=== PATIENT | female | born 1975 | race Caucasian/White ===

== ENCOUNTER 2018-11-24 19:28 | Emergency (ER) | payer SELFPAY ==
[2018-11-24] MEDS ORDERED: ONDANSETRON 4 MG/2 ML VIAL ONE ×2 (20:27→22:13)
[2018-11-24] MEDS ORDERED: KETOROLAC 30 MG/ML INJ ONE (20:27)
[2018-11-24] MEDS ORDERED: NA CHLORIDE 0.9% 1,000 ML ONE (20:27)
[2018-11-24 20:29] LABS: Absolute Lymphocytes (CBC) 1.1 K/uL (0.7-4.9); Absolute Monocytes 2.7 K/uL (0.1-1.3); Basophils % 0.2 % (0-1.3); Eosinophils % 0.1 % (0-4.4); Hematocrit 35.3 % (36.0-45.0); MPV 7.4 fL (7.6-11.3); Monocytes % 11.7 % (3.3-12.3)
[2018-11-24 20:48] LABS: ALT/SGPT 21 U/L (12-78); AST/SGOT 16 U/L (15-37); Albumin 3.2 g/dL (3.4-5.0); Alkaline Phosphatase 72 U/L (45-117); BUN Blood Urea Nitrogen 8 mg/dL (7-18); Bicarbonate 27 mmol/L (21-32); Bilirubin Direct 0.2 mg/dL (0-0.2); Bilirubin Total 0.5 mg/dL (0.2-1.0); Glucose Level 98 mg/dL (74-106); Lipase 63 U/L (73-393); Potassium 3.6 mmol/L (3.5-5.1); Protein, Total 6.6 g/dL (6.4-8.2); Sodium Level 135 mmol/L (136-145); Urine Appearance CLEAR; Urine Bilirubin NEGATIVE (NEG); Urine Blood 3+ (NEG); Urine Color YELLOW; Urine Glucose NEGATIVE (NEG); Urine Protein NEGATIVE (NEG); Urine Specific Gravity 1.015 (1.005-1.030)
[2018-11-24 20:56] LABS: Urine Microscopic Reflex NO UMIC
[2018-11-24 21:04] LABS: Blood Morphology Comment NOT SEEN (NOT SEEN); Platelet Estimate ADEQ
[2018-11-24 21:05] LABS: Urine Bacteria <20 /HPF (<20); Urine Culture Reflex Order REFLEXED
[2018-11-24 21:54] LABS: Urine Specific Gravity 1.015 (1.005-1.030)
[2018-11-24] MEDS ORDERED: MORPHINE 4 MG/ML SYR ONE (22:13)
--- NOTE | 2018-11-24 22:13 | EDPHYS ---
Physician Documentation [facility] Name: Whit Rojo Age: 43 yrs Sex: Female : 1975 Arrival Date: 11/24/2018 Time: 19:33 Bed 26 Private MD: ED Physician Kiet Burr HPI: 11/24 20:58 This 43 yrs old Female presents to ER via Wheelchair with complaints of Back tw4 Pain. 20:58 The patient presents with pain that is acute. The patient presents with pain that is tw4 acute, with no known mechanism of injury. The symptoms are located in the right low back. Onset: The symptoms/episode began/occurred 2 day(s) ago. The pain radiates to the right hamstring, posterior aspect of right knee and right calf. Associated signs and symptoms: Pertinent positives: abdominal pain, nausea, Pertinent negatives: chest pain, dysuria, fever, headache. The problem was sustained from unknown cause. Modifying factors: The patient symptoms are alleviated by remaining still, the patient symptoms are aggravated by any movement, lifting, movement. The patient has not experienced similar symptoms in the past. 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 - Social history:: Smoking status: Patient uses tobacco products, smokes one-half pack cigarettes per day. - Ebola Screening: : Patient negative for fever greater than or equal to 101.5 degrees Fahrenheit, and additional compatible Ebola Virus Disease symptoms Patient denies exposure to infectious person Patient denies travel to an Ebola-affected area in the 21 days before illness onset No symptoms or risks identified at this time. ROS: 20:58 Constitutional: Negative for fever, chills, and weight loss, Eyes: Negative for injury, tw4 pain, redness, and discharge, Cardiovascular: Negative for chest pain, palpitations, and edema, Respiratory: Negative for shortness of breath, cough, wheezing, and pleuritic chest pain, Abdomen/GI: Negative for abdominal pain, nausea, vomiting, diarrhea, and constipation, MS/Extremity: Negative for injury and deformity, Skin: Negative for injury, rash, and discoloration, Neuro: Negative for headache, weakness, numbness, tingling, and seizure. 20:58 Back: Positive for pain at rest, pain with movement, flank pain, on the right, radiated pain, Negative for injury or acute deformity. Exam: 20:58 Constitutional: This is a well developed, well nourished patient who is awake, alert, tw4 and in no acute distress. Head/Face: Normocephalic, atraumatic. Chest/axilla: Normal chest wall appearance and motion. Nontender with no deformity. No lesions are appreciated. Cardiovascular: Regular rate and rhythm with a normal S1 and S2. No gallops, murmurs, or rubs. Normal PMI, no JVD. No pulse deficits. Respiratory: Lungs have equal breath sounds bilaterally, clear to auscultation and percussion. No rales, rhonchi or wheezes noted. No increased work of breathing, no retractions or nasal flaring. Abdomen/GI: Soft, non-tender, with normal bowel sounds. No distension or tympany. No guarding or rebound. No evidence of tenderness throughout. MS/ Extremity: Pulses equal, no cyanosis. Neurovascular intact. Full, normal range of motion. Neuro: Awake and alert, GCS 15, oriented to person, place, time, and situation. Cranial nerves II-XII grossly intact. Motor strength 5/5 in all extremities. Sensory grossly intact. Cerebellar exam normal. Normal gait. 20:58 Back: pain, is absent, ROM is painless, normal spinal alignment noted, CVA tenderness, is noted on the right, vertebral tenderness, is not appreciated. Vital Signs: 19:40 BP 127 / 74; Pulse 119; Resp 19; Temp 100.2; Pulse Ox 100% on R/A; Weight 56.7 kg; ed1 Height 5 ft. 3 in. (160.02 cm); Pain 10/10; 20:00 BP 124 / 78; Pulse 107; Resp 14; Pulse Ox 100% on R/A; Pain 10/10; ls4 21:01 BP 128 / 72; Pulse 112; Resp 14; Pulse Ox 99% on R/A; Pain 5/10; ls4 22:29 BP 124 / 70; Pulse 78; Resp 12; Temp 99.1; Pulse Ox 99% on R/A; Pain 3/10; ls4 19:40 Body Mass Index 22.14 (56.70 kg, 160.02 cm) ed1 MDM: 19:44 Patient medically screened. tw4 22:10 Data reviewed: vital signs, nurses notes. Data interpreted: alarm security or surveillance monitor:. tw4 Counseling: I had a detailed discussion with the patient and/or guardian regarding: the historical points, exam findings, and any diagnostic results supporting the discharge/admit diagnosis, lab results, radiology results. Medication response: morphine markedly relieved the patient's pain. Symptoms have improved, Toradol partially relieved the patient's pain. Response to treatment: the patient's symptoms have markedly improved after treatment, and as a result, I will discharge patient. Special discussion: I discussed with the patient/guardian in detail that at this point there is no indication for admission to the hospital. It is understood, however, that if the symptoms persist or worsen the patient needs to return immediately for re-evaluation. 11/24 19:53 Order name: Basic Metabolic Panel; Complete Time: 21:02 11/24 21:22 Interpretation: Normal except: NA 135. 11/24 19:53 Order name: CBC with Diff; Complete Time: 21:22 11/24 21:22 Interpretation: Normal except: WBC 22.8; HGB 11.7; HCT 35.3; MPV 7.4; NITIN% 83.0; LYM% tw4 5.0; NEUT A 19.0. 11/24 19:53 Order name: Creatinine for Radiology; Complete Time: 21:02 11/24 19:53 Order name: Hepatic Function; Complete Time: 21:02 11/24 21:22 Interpretation: Normal except: ALB 3.2; A/G 0.9. 11/24 19:53 Order name: Lipase; Complete Time: 21:02 11/24 21:23 Interpretation: Normal except: LIP 63. 11/24 19:53 Order name: Urinalysis; Complete Time: 22:10 11/24 22:10 Interpretation: Normal except: UBLD 3+; UESTR 1+. 11/24 19:53 Order name: Urine Microscopic Only; Complete Time: 21:21 11/24 21:23 Interpretation: Normal except: UWBC 5-10; URBC 5-10; SQEPI 5-10. 4 11/24 20:32 Order name: Manual Differential; Complete Time: 21:22 [facility] 11/24 21:22 Interpretation: Normal except: BANDS [F] 5; LYM 8. 4 11/24 20:39 Order name: CT Stone Protocol [facility] 11/24 21:06 Order name: Urine Culture [facility] 11/24 21:48 Order name: Urine --Ancillary (enter results) [facility] 11/24 19:53 Order name: IV Saline Lock; Complete Time: 20:23 [facility] 11/24 19:53 Order name: Labs collected and sent; Complete Time: 20:23 [facility] 11/24 19:53 Order name: Urine Test (obtain specimen); Complete Time: 20:23 tw4 Administered Medications: 20:22 Drug: Zofran 4 mg Route: IVP; Site: right antecubital; ls4 21:03 Follow up: Response: No adverse reaction; Marked relief of symptoms ls4 20:23 Drug: TORadol 30 mg Route: IVP; Site: right antecubital; ls4 21:03 Follow up: Response: No adverse reaction; Marked relief of symptoms ls4 20:23 Drug: NS 0.9% 1000 ml Route: IV; Rate: 1 bolus; Site: right antecubital; ls4 21:23 Follow up: IV Status: Completed infusion; IV Intake: 1000ml ls4 22:05 Drug: morphine 4 mg Route: IVP; Site: right antecubital; ls4 22:16 Follow up: Response: No adverse reaction; Marked relief of symptoms ls4 22:05 Drug: Zofran 4 mg Route: IVP; Site: right antecubital; ls4 22:16 Follow up: Response: No adverse reaction; Marked relief of symptoms ls4 Disposition: 11/24/18 22:12 Discharged to Home. Impression: Calculus of kidney with calculus of ureter. - Condition is Stable. - Discharge Instructions: Kidney Stones, Renal Colic. - Prescriptions for Ibuprofen 800 mg Oral Tablet - take 1 tablet by ORAL route every 8 hours As needed take with food; 30 tablet. Tylenol- Codeine #3 300-30 mg Oral Tablet - take 2 tablet by ORAL route every 6 hours As needed; 6 tablet. Flomax 0.4 mg Oral Capsule, Sust. Release 24 hr - take 1 capsule by ORAL route once daily 1/2 hour following the same meal each day; 30 capsule. - Medication Reconciliation Form, Thank You Letter, Antibiotic Education, Prescription Opioid Use form. - Follow up: Private Physician; When: Upon discharge from the Emergency Department; Reason: Recheck today's complaints, Continuance of care. Follow up: Ayan Baker MD; When: Upon discharge from the Emergency Department; Reason: If symptoms return, Recheck today's complaints, Continuance of care. Signatures: Dispatcher [employer] EDHI Leia Elias RN RN ed1 Kiet Burr MD MD tw4 Chaya Bowles RN RN ls4 Corrections: (The following items were deleted from the chart) 21:55 21:49 URINE DIPSTICK--ANCILLARY+U.LAB.BRZ ordered. [facility] 22:46 22:12 11/24/2018 22:12 Discharged to Home. Impression: Calculus of kidney with calculus ls4 of ureter. Condition is Stable. Forms are Medication Reconciliation Form, Thank You Letter, Antibiotic Education, Prescription Opioid Use. Follow up: Private Physician; When: Upon discharge from the Emergency Department; Reason: Recheck today's complaints, Continuance of care. Follow up: Ayan Baker; When: Upon discharge from the Emergency Department; Reason: If symptoms return, Recheck today's complaints, Continuance of care. tw4
--- NOTE | 2018-11-24 22:13 | ER ---
Nurse's Notes [facility] Name: Whit Rojo Age: 43 yrs Sex: Female : 1975 Arrival Date: 11/24/2018 Time: 19:33 Bed 26 Private MD: Diagnosis: Calculus of kidney with calculus of ureter Presentation: 11/24 19:38 Presenting complaint: Patient states: 2 weeks ago I thought I had a UTI so I started ed1 taking some antibiotics. Two days ago my lower back on the right side started hurting and now it is unbearable. Transition of care: patient was not received from another setting of care. Onset of symptoms was November 22, 2018. Risk Assessment: Do you want to hurt yourself or someone else? Patient reports no desire to harm self or others. Initial Sepsis Screen: Does the patient meet any 2 criteria?. Initial Sepsis Screen: Does the patient meet any 2 criteria? No. Patient's initial sepsis screen is negative. Does the patient have a suspected source of infection? No. Patient's initial sepsis screen is negative. Care prior to arrival: None. 19:38 Method Of Arrival: Wheelchair ed1 19:38 Acuity: RISSA 3 ed1 Triage Assessment: 19:40 General: Appears uncomfortable, Behavior is calm, cooperative. Pain: Complains of pain ed1 in back Pain currently is 10 out of 10 on a pain scale. Musculoskeletal: Circulation, motion, and sensation intact. Range of motion: intact in all extremities, Swelling absent. 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 - Social history:: Smoking status: Patient uses tobacco products, smokes one-half pack cigarettes per day. - Ebola Screening: : Patient negative for fever greater than or equal to 101.5 degrees Fahrenheit, and additional compatible Ebola Virus Disease symptoms Patient denies exposure to infectious person Patient denies travel to an Ebola-affected area in the 21 days before illness onset No symptoms or risks identified at this time. Screenin:02 Abuse screen: Denies threats or abuse. Denies injuries from another. Nutritional ls4 screening: No deficits noted. Tuberculosis screening: No symptoms or risk factors identified. Fall Risk None identified. Assessment: 20:02 Neuro: Level of Consciousness is awake, alert, obeys commands, Oriented to person, ls4 place, time, situation, Sap Basis Administrator are equal bilaterally Moves all extremities. Gait is steady, Speech is normal, Facial symmetry appears normal, Pupils are PERRLA. Cardiovascular: Reports None. Respiratory: Airway is patent Respiratory effort is even, unlabored, Respiratory pattern is regular. GI: No deficits noted. : Reports burning with urination, since 2 WEEKS pain flank(s), in lower back. 20:02 Musculoskeletal: No deficits noted. ls4 Vital Signs: 19:40 BP 127 / 74; Pulse 119; Resp 19; Temp 100.2; Pulse Ox 100% on R/A; Weight 56.7 kg; ed1 Height 5 ft. 3 in. (160.02 cm); Pain 10/10; 20:00 BP 124 / 78; Pulse 107; Resp 14; Pulse Ox 100% on R/A; Pain 10/10; ls4 21:01 BP 128 / 72; Pulse 112; Resp 14; Pulse Ox 99% on R/A; Pain 5/10; ls4 22:29 BP 124 / 70; Pulse 78; Resp 12; Temp 99.1; Pulse Ox 99% on R/A; Pain 3/10; ls4 19:40 Body Mass Index 22.14 (56.70 kg, 160.02 cm) ed1 ED Course: 19:33 Patient arrived in ED. mr 19:40 Triage completed. ed1 19:40 Arm band placed on left wrist. ed1 19:44 Kiet Burr MD is Attending Physician. tw4 19:44 Patient has correct armband on for positive identification. Bed in low position. Call ls4 light in reach. Side rails up X 1. 19:44 Pulse ox on. NIBP on. Verbal reassurance given. ls4 20:05 Chaya Bowles, SANTIAG[place] is Primary Nurse. ls4 20:[address] via wheelchair. nj 20:59 CT Stone Protocol In Process Unspecified. EDMS 21:02 No provider procedures requiring assistance completed. ls4 22:11 Ayan Baker MD is Referral Physician. tw4 22:14 Urine Culture Sent. ls4 22:28 IV discontinued, intact, bleeding controlled, No redness/swelling at site. Pressure ls4 dressing applied. Administered Medications: 20:22 Drug: Zofran 4 mg Route: IVP; Site: right antecubital; ls4 21:03 Follow up: Response: No adverse reaction; Marked relief of symptoms ls4 20:23 Drug: TORadol 30 mg Route: IVP; Site: right antecubital; ls4 21:03 Follow up: Response: No adverse reaction; Marked relief of symptoms ls4 20:23 Drug: NS 0.9% 1000 ml Route: IV; Rate: 1 bolus; Site: right antecubital; ls4 21:23 Follow up: IV Status: Completed infusion; IV Intake: 1000ml ls4 22:05 Drug: morphine 4 mg Route: IVP; Site: right antecubital; ls4 22:16 Follow up: Response: No adverse reaction; Marked relief of symptoms ls4 22:05 Drug: Zofran 4 mg Route: IVP; Site: right antecubital; ls4 22:16 Follow up: Response: No adverse reaction; Marked relief of symptoms ls4 Intake: 21:23 IV: 1000ml; Total: 1000ml. ls4 Outcome: 22:12 Discharge ordered by . tw4 22:17 Discharged to home ambulatory, with friend. ls4 22:17 Condition: stable 22:17 Discharge instructions given to patient, friend, Instructed on discharge instructions, follow up and referral plans. medication usage, safety practices, Demonstrated understanding of instructions, follow-up care, medications, Prescriptions given X 3. 22:46 Patient left the ED. ls4 Signatures: Dispatcher [employer] Shirley Agosto Erika, RN RN ed1 Anish Sarmiento Terrence, MD MD tw4 Chaya Bowles RN RN ls4
--- NOTE | 2018-11-25 11:38 | RAD REPORT ---
EXAM DESCRIPTION: CT - Stone Protocol - 11/25/2018 4:25 am CLINICAL HISTORY: Right-sided abdominal pain. Back pain. COMPARISON: None. TECHNIQUE: CT scan of the abdomen and pelvis was performed without IV contrast. This exam was perfor med according to our departmental dose-optimization program, which includes automated exposure contro l, adjustment of the mA and/or kV according to patient size and/or use of iterative reconstruction te chnique. FINDINGS: The lung bases are clear. No pleural or pericardial effusions. There is no hiatal hernia. The liver, gallbladder, spleen, pancreas, and adrenal glands are unremarkable. There is mild bilatera l perinephric stranding with a likely 3 mm stone in the distal right ureter. There is also a tiny non obstructing stone in the right kidney. The pelvic organs are grossly unremarkable with a retroverted uterus. A small amount of free fluid is present in the pelvic cul-de-sac, likely physiologic. No small bowel obstruction. The appendix is normal. There is no evidence of diverticulitis. No adenop athy or free air is identified. IMPRESSION: 1. Query 3 mm stone in the distal right ureter. Additional tiny nonobstructing stone i n the right kidney. 2. Mild bilateral perinephric stranding, greater on the right. Correlate with urinalysis to exclude pyonephritis. 3. Normal appendix. Electronically signed by: Doe Rosario MD 11/24/2018 9:13 PM CDT Due to temporary technical issues with the PACS/Fluency reporting system, reports are being signed by the in house radiologist as a courtesy to ensure prompt reporting. The interpreting radiologist is f ully responsible for the content of the report.
== END 2018-11-24 22:46 | disposition home or self-care (01) ==
LOC: ER 19:28
DX: N20.2 Calculus of kidney with calculus of ureter (principal); F17.210 Nicotine dependence, cigarettes, uncomplicated
CPT/HCPCS: 36415; 74176; 76377; 80048; 80076; 81003; 81015; 81025; 83690; 85025; 87086; 87088; J2405; J7030

== ENCOUNTER 2020-03-11 15:37 | Emergency (ER) | payer OTHER ==
--- NOTE | 2020-03-11 16:36 | EDPHYS ---
Physician Documentation [facility] Name: Whit Rojo Age: 44 yrs Sex: Female : 1975 Arrival Date: 03/11/2020 Time: 15:40 Bed 8 Private MD: ED Physician Parveen Houston HPI: 03/11 16:03 This 44 yrs old Female presents to ER via Unassigned with complaints of Hand cp Injury. 16:03 The patient or guardian reports injury, pain. The complaints affect the second finger cp and metacarpal right hand. Context: resulted from a fall, while walking. Onset: The symptoms/episode began/occurred 1 week(s) ago. Historical: - Allergies: 16:07 No Known Allergies; iw - PMHx: 16:06 Hepatitis; iw - PSHx: 16:06 Ovarian cyst rupture; Tubal ligation; iw - Immunization history:: Adult Immunizations not up to date. - Social history:: Smoking status: . ROS: 16:05 MS/extremity: Positive for pain, swelling, tenderness, of the right second finger and cp metacarpal, Negative for decreased range of motion, deformity, paresthesias. 16:05 Skin: Negative for cellulitis, rash. cp 16:05 All other systems are negative. cp Exam: 16:10 Constitutional: The patient appears in no acute distress, alert, awake, well developed, cp well nourished. 16:10 Musculoskeletal/extremity: Extremities: grossly normal except: noted in the right cp second finger and second metacarpal : pain, swelling, tenderness, ROM: limited passive range of motion due to pain, in the right second finger, Perfusion: the extremity is normally perfused throughout, Sensation intact. Tendon exam: specific tendon testing normal through active and passive range of motion Vital Signs: 16:30 BP 138 / 74; Pulse 84; Resp 16; Temp 98.0; Pulse Ox 98% on R/A; iw MDM: 15:59 Patient medically screened. cecile 16:30 Test interpretation: by ED physician or midlevel provider: xrays of right hand negative cp for fracture. 16:35 Data reviewed: vital signs, nurses notes, radiologic studies, plain films. cp 16:35 Counseling: I had a detailed discussion with the patient and/or guardian regarding: the cp historical points, exam findings, and any diagnostic results supporting the discharge/admit diagnosis, radiology results, to return to the emergency department if symptoms worsen or persist or if there are any questions or concerns that arise at home. 03/11 16:03 Order name: XRAY Hand RIGHT 3 View; Complete Time: 17:24 cp 03/11 17:24 Interpretation: Report reviewed. cp 03/11 16:31 Order name: Splint - Volar Wrist Splint; Complete Time: 17:33 cp Administered Medications: No medications were administered Disposition: 03/12 06:08 Co-signature as Attending Physician, Parveen Houston MD I agree with the assessment and cecile plan of care. Chart complete. Disposition: 03/11/20 16:36 Discharged to Home. Impression: Pain in right hand. - Condition is Stable. - Discharge Instructions: Hand Pain. - Prescriptions for Ibuprofen 800 mg Oral Tablet - take 1 tablet by ORAL route every 8 hours As needed take with food; 30 tablet. - Medication Reconciliation Form, Thank You Letter, Antibiotic Education, Prescription Opioid Use form. - Follow up: Private Physician; When: 2 - 3 days; Reason: Worsening of condition. - Problem is new. - Symptoms have improved. Signatures: Dispatcher [employer] EDParveen Farris MD MD cha Williams, Irene RN RN Parveen Moore PA PA cp Corrections: (The following items were deleted from the chart) 03/11 17:37 16:36 03/11/2020 16:36 Discharged to Home. Impression: Pain in right hand. Condition is iw Stable. Forms are Medication Reconciliation Form, Thank You Letter, Antibiotic Education, Prescription Opioid Use. Follow up: Private Physician; When: 2 - 3 days; Reason: Worsening of condition. Problem is new. Symptoms have improved. cp
--- NOTE | 2020-03-11 16:36 | ER ---
Nurse's Notes [facility] Name: Whit Rojo Age: 44 yrs Sex: Female : 1975 Arrival Date: 03/11/2020 Time: 15:40 Bed 8 Private MD: Diagnosis: Pain in right hand Presentation: 03/11 16:03 Chief complaint: Patient states: right hand injury after getting yanked by her dog on iw leash, also fell last week on right hand. Coronavirus screen: At this time, the client does not indicate any symptoms associated with coronavirus-19. Ebola Screen: Patient negative for fever greater than or equal to 101.5 degrees Fahrenheit, and additional compatible Ebola Virus Disease symptoms Patient denies exposure to infectious person. Patient denies travel to an Ebola-affected area in the 21 days before illness onset. No symptoms or risks identified at this time. Initial Sepsis Screen: Does the patient meet any 2 criteria? No. Patient's initial sepsis screen is negative. Does the patient have a suspected source of infection? No. Patient's initial sepsis screen is negative. Risk Assessment: Do you want to hurt yourself or someone else? Patient reports no desire to harm self or others. Onset of symptoms was March 11, 2020. 16:03 Method Of Arrival: Ambulatory iw 16:03 Acuity: RISSA 4 iw Historical: - Allergies: 16:07 No Known Allergies; iw - PMHx: 16:06 Hepatitis; iw - PSHx: 16:06 Ovarian cyst rupture; Tubal ligation; iw - Immunization history:: Adult Immunizations not up to date. - Social history:: Smoking status: . Screenin:06 Abuse screen: Denies threats or abuse. Denies injuries from another. Nutritional iw screening: No deficits noted. Tuberculosis screening: No symptoms or risk factors identified. Fall Risk None identified. Assessment: 16:06 General: Appears in no apparent distress. Behavior is calm, cooperative. Pain: iw Complains of pain in right hand. Neuro: Level of Consciousness is awake, alert, obeys commands, Oriented to person, place, time, situation, Moves all extremities. Full function. Cardiovascular: Patient's skin is warm and dry. Respiratory: Respiratory effort is even, unlabored, Respiratory pattern is regular, symmetrical. Derm: Skin is intact, is healthy with good turgor. Musculoskeletal: Range of motion: intact in all extremities. Vital Signs: 16:30 BP 138 / 74; Pulse 84; Resp 16; Temp 98.0; Pulse Ox 98% on R/A; iw ED Course: 15:40 Patient arrived in ED. mr 15:58 Keyla Aguayo, RN is Primary Nurse. iw 15:58 Parveen De La Rosa PA is PHCP. cp 15:58 Parveen Houston MD is Attending Physician. cp 16:04 Triage completed. iw 16:04 Arm band placed on. iw 16:06 No provider procedures requiring assistance completed. Patient did not have IV access iw during this emergency room visit. 16:20 XRAY Hand RIGHT 3 View In Process Unspecified. EDMS 17:33 Velcro wrist splint applied to right wrist. mh5 17:34 Patient has correct armband on for positive identification. Bed in low position. Call mh5 light in reach. Warm blanket given. Pulse ox on. NIBP on. Administered Medications: No medications were administered Outcome: 16:36 Discharge ordered by MD. cp 17:36 Discharged to home ambulatory. iw 17:36 Condition: good 17:36 Discharge instructions given to patient, Instructed on discharge instructions, follow up and referral plans. medication usage, Demonstrated understanding of instructions, follow-up care, medications, Prescriptions given X 1. 17:37 Patient left the ED. iw Signatures: Dispatcher [employer] Shirley Agosto Keyla Aguayo, RN RN iw Parveen De La Rosa PA PA cp Martinez, Maria [facility]
--- NOTE | 2020-03-11 17:21 | RAD REPORT ---
EXAM DESCRIPTION: RAD - Hand Right 3 View - 03/11/2020 4:20 pm CLINICAL HISTORY: PAIN COMPARISON: No comparisons FINDINGS: No fracture is identified. There is no dislocation or periosteal reaction noted. No forei gn body or significant soft tissue abnormality. IMPRESSION: Negative right hand examination.
[2020-03-11 17:47] VITALS: BP 138/74; TEMP 98; O2SAT 98
== END 2020-03-11 17:37 | disposition home or self-care (01) ==
LOC: ER 15:37
DX: M79.641 Pain in right hand (principal)
CPT/HCPCS: 99284